=== PATIENT | female | born 1990 | race Two or more races ===

== ENCOUNTER 2018-04-05 17:02 | Emergency (ER) | payer MEDICAID ==
[~2018-04-05] VITALS: Ht 167.6 cm; Wt 80.0 kg
[~2018-04-05 17:02] MED LIST: ALB0.5UD IH; ALBU6.7H INH; NO HOME MEDS; PRED50TA PO
[2018-04-05] MEDS ORDERED: HYDROcodone/acetaminophen 10/325mg tab PO ONE (17:40)
[2018-04-05] MEDS ORDERED: cephalexin 500mg capsule PO ONE (17:40)
[2018-04-05] MEDS ORDERED: HYDR-569 PO (17:40)
[2018-04-05] MEDS ORDERED: CEPH500C5 PO (17:40)
[2018-04-05] MEDS ORDERED: NAPR-56 PO (17:40)
[2018-04-05] MEDS ORDERED: naproxen 500mg tablet PO ONE (17:40)
[2018-04-05 18:31] VITALS: BP 130/72
== END 2018-04-05 18:32 | disposition home or self-care (01) ==
LOC: ER 17:02
DX: H60.02 Abscess of left external ear (principal); J45.909 Unspecified asthma, uncomplicated; Z88.2 Allergy status to sulfonamides; Z79.899 Other long term (current) drug therapy
CPT/HCPCS: 10061; 99284

== ENCOUNTER 2018-06-06 22:48 | Inpatient (IN) | payer MEDICAID ==
[~2018-06-06] VITALS: Ht 167.6 cm; Wt 89.5 kg
[~2018-06-06 22:48] MED LIST changes: +AMOX500C2 PO; +CEPH500C5 PO; +HYDR-569 PO
[2018-06-07] MEDS ORDERED: clindamycin-Cleocin 900mg/D5W 50 ML IV ONE (03:15)
[2018-06-07] MEDS ORDERED: ondansetron/PF 4mg/2ml inj IV ONE ×2 (03:15→05:40)
[2018-06-07] MEDS ORDERED: morphine 4 MG/ML inj SYRINge IV ONE ×2 (03:15→05:40)
[2018-06-07 04:21] LABS: ALBUMIN 3.8 G/DL (3.4-5.0); ANION GAP 8 (8-16); BASOPHILS # (AUTO) 0.1 X10'3 (0-0.2); BASOPHILS % (AUTO) 0.7 % (0-1); BLOOD UREA NITROGEN 8 MG/DL (7-18); BUN/CREATININE RATIO 10.1 (6.6-38.0); CALCIUM 8.7 MG/DL (8.5-10.1); CHLORIDE 104 MMOL/L (99-107); CREATININE 0.79 MG/DL (0.40-0.90); EOSINOPHILS % (AUTO) 6.4 % (0-6); GLUCOSE 93 MG/DL (70-104); HEMATOCRIT 34.1 % (35.0-45.0); LYMPHOCYTES % (AUTO) 20.3 % (21-51); MEAN CORPUSCULAR HEMOGLOBIN 24.1 PG (27.0-31.0); MEAN CORPUSCULAR HGB CONC 32.3 % (33.0-36.5); MEAN CORPUSCULAR VOLUME 74.4 FL (78-98); MEAN PLATELET VOLUME 10.4 FL (7.4-10.4); MONOCYTES # (AUTO) 1.3 X10'3 (0-0.9); MONOCYTES % (AUTO) 8.7 % (2-12); NEUTROPHILS # (AUTO) 9.5 X10'3 (1.8-7.7); NEUTROPHILS % (AUTO) 63.9 % (42-75); PLATELET COUNT 317 X10'3 (140-440); POTASSIUM 3.5 MMOL/L (3.5-5.1); RED BLOOD COUNT 4.59 X10'6 (4.20-5.60); SODIUM 139 MMOL/L (135-145); TOTAL CARBON DIOXIDE 26.6 MMOL/L (24-32); WHITE BLOOD COUNT 14.9 X10'3 (4.5-11.0); eGFR 86 ML/MIN
[2018-06-07] MEDS ORDERED: bisacodyl 10mg suppository rectal RC PRN (06:15)
[2018-06-07] MEDS ORDERED: morphine 4 MG/ML inj SYRINge IV PRN (06:15)
[2018-06-07] MEDS ORDERED: HYDROmorphone inj. 0.5 MG/0.5 ML DISP.SYRIN IV PRN ×2 (06:15)
[2018-06-07] MEDS ORDERED: acetaminophen 325mg tablet PO PRN ×2 (06:15)
[2018-06-07] MEDS ORDERED: magnesium hydroxide 30ml (MOM) UD suspension PO PRN (06:15)
[2018-06-07] MEDS ORDERED: tetanus & diphtheria toxoid (Td) vaccine 0.5ml IMVAC ONE (06:15)
[2018-06-07] MEDS ORDERED: diphenhydrAMINE 50 mg/ml inj IV PRN (06:15)
[2018-06-07] MEDS ORDERED: diphenhydrAMINE 25mg capsule PO PRN (06:15)
[2018-06-07] MEDS ORDERED: mag hydrox/Alum hydrox/simeth 30ml oral suspension PO PRN (06:15)
[2018-06-07] MEDS ORDERED: metoclopramide 5 mg/ml inj IV PRN (06:15)
[2018-06-07] MEDS ORDERED: BIRTH CONTROL PILLS PO (06:34)
[2018-06-07] MEDS: normal saline 1000ml 1,000 ML IV SCH ×3 (06:47→19:13)
[2018-06-07] MEDS ORDERED: TETanus/Pertussis (Acell)/Diphther VAC/PF (Tdap-Adult) 0.5ml syringe IMVAC ONE (07:00)
[2018-06-07] MEDS: pantoprazole 40mg Tablet.DR PO SCH (07:42)
[2018-06-07 08:28] VITALS: BP 106/66
[2018-06-07] MEDS: docusate sod 100mg capsule PO SCH ×2 (09:02→20:18)
[2018-06-07] MEDS: morphine 4 MG/ML inj SYRINge IV PRN ×4 (09:02→23:39)
[2018-06-07] MEDS: heparin, porcine 5000 units/ml vial SQ SCH ×2 (09:02→20:19)
[2018-06-07] MEDS: clindamycin 600mg/D5W 50ml 50 ML IV SCH ×3 (09:02→20:22)
[2018-06-07 10:38] VITALS: BP 107/67
[2018-06-07 18:00] VITALS: BP 121/86
[2018-06-07] MEDS: HYDROcodone/acetaminophen 5mg/325mg tablet PO PRN (20:27)
[2018-06-07] MEDS ORDERED: temazepam 15mg capsule PO PRN (21:00)
[2018-06-08] MEDS: clindamycin 600mg/D5W 50ml 50 ML IV SCH ×2 (02:37→08:46)
[2018-06-08] MEDS: HYDROcodone/acetaminophen 10/325mg tab PO PRN ×3 (02:41→20:52)
[2018-06-08 05:00] VITALS: BP 113/77
[2018-06-08] MEDS: morphine 4 MG/ML inj SYRINge IV PRN (05:09)
[2018-06-08] MEDS: normal saline 1000ml 1,000 ML IV SCH ×2 (05:13→16:24)
[2018-06-08 06:03] LABS: BASOPHILS # (AUTO) 0.1 X10'3 (0-0.2); BASOPHILS % (AUTO) 0.6 % (0-1); EOSINOPHILS # (AUTO) 0.8 X10'3 (0-0.9); EOSINOPHILS % (AUTO) 9.3 % (0-6); HEMATOCRIT 30.2 % (35.0-45.0); HEMOGLOBIN 9.7 g/dl (12.0-16.0); LYMPHOCYTES # (AUTO) 3.3 X10'3 (1.1-4.8); LYMPHOCYTES % (AUTO) 36.5 % (21-51); MEAN CORPUSCULAR HEMOGLOBIN 23.9 PG (27.0-31.0); MEAN CORPUSCULAR HGB CONC 32.2 % (33.0-36.5); MEAN CORPUSCULAR VOLUME 74.4 FL (78-98); MEAN PLATELET VOLUME 9.6 FL (7.4-10.4); MONOCYTES % (AUTO) 10.6 % (2-12); NEUTROPHILS # (AUTO) 3.9 X10'3 (1.8-7.7); PLATELET COUNT 270 X10'3 (140-440); RED BLOOD COUNT 4.05 X10'6 (4.20-5.60); WHITE BLOOD COUNT 9.1 X10'3 (4.5-11.0)
[2018-06-08 06:30] LABS: ALANINE AMINOTRANSFERASE 20 U/L (12-78); ALBUMIN 3.1 G/DL (3.4-5.0); ALBUMIN/GLOBULIN RATIO 0.9 (1.1-1.5); ALKALINE PHOSPHATASE 51 IU/L (46-116); ANION GAP 8 (8-16); ASPARTATE AMINO TRANSFERASE 9 U/L (10-37); BILIRUBIN,TOTAL 0.4 MG/DL (0.1-1.0); BLOOD UREA NITROGEN 8 MG/DL (7-18); BUN/CREATININE RATIO 9.2 (6.6-38.0); CALCIUM 7.7 MG/DL (8.5-10.1); CHLORIDE 107 MMOL/L (99-107); CREATININE 0.87 MG/DL (0.40-0.90); GLUCOSE 96 MG/DL (70-104); POTASSIUM 3.8 MMOL/L (3.5-5.1); SODIUM 141 MMOL/L (135-145); TOTAL CARBON DIOXIDE 26.5 MMOL/L (24-32); TOTAL PROTEIN 6.5 G/DL (6.4-8.2); eGFR 77 ML/MIN
[2018-06-08 07:05] LABS: ANISOCYTOSIS 2+; PLATELET ESTIMATE NORMAL
[2018-06-08 07:12] LABS: HYPOCHROMASIA 1+; MICROCYTOSIS 1+
[2018-06-08] MEDS: heparin, porcine 5000 units/ml vial SQ SCH ×2 (08:47→20:20)
[2018-06-08] MEDS: pantoprazole 40mg Tablet.DR PO SCH (08:47)
[2018-06-08] MEDS: docusate sod 100mg capsule PO SCH ×2 (08:47→20:20)
[2018-06-08 10:00] VITALS: BP 116/77
[2018-06-08] MEDS ORDERED: CefTRIAXone 2gm/D5W 50ml 50 ML IV ONE (13:30)
[2018-06-08] MEDS ORDERED: vancomycin inj 1,250 MG in normal saline 250ml IV soln 250 ML IV SCH (14:00)
[2018-06-08] MEDS ORDERED: [UNRECOGNIZED DRUG - REMARK] (15:51)
[2018-06-08] MEDS: HYDROcodone/acetaminophen 5mg/325mg tablet PO PRN (16:46)
[2018-06-08] MEDS ORDERED: diphenhydrAMINE 50 mg/ml inj IV PRN (18:00)
[2018-06-08] MEDS ORDERED: diphenhydrAMINE 50 mg/ml inj ONE (18:01)
[2018-06-08 19:30] VITALS: BP 112/73
[2018-06-08] MEDS: linezolid 600mg/300ml PREMIX 300 ML IV SCH (20:19)
[2018-06-08 22:24] VITALS: BP 127/88
[2018-06-09] MEDS: morphine 4 MG/ML inj SYRINge IV PRN ×4 (04:11→17:21)
[2018-06-09] MEDS: normal saline 1000ml 1,000 ML IV SCH ×2 (04:12→18:14)
[2018-06-09] MEDS: ondansetron/PF 4mg/2ml inj IV PRN (04:23)
[2018-06-09 06:00] VITALS: BP 128/76
[2018-06-09 06:20] LABS: BASOPHILS # (AUTO) 0.2 X10'3 (0-0.2); BASOPHILS % (AUTO) 1.7 % (0-1); EOSINOPHILS # (AUTO) 0.9 X10'3 (0-0.9); EOSINOPHILS % (AUTO) 8.5 % (0-6); HEMATOCRIT 30.9 % (35.0-45.0); LYMPHOCYTES # (AUTO) 2.4 X10'3 (1.1-4.8); LYMPHOCYTES % (AUTO) 23.7 % (21-51); MEAN CORPUSCULAR HEMOGLOBIN 24.2 PG (27.0-31.0); MEAN CORPUSCULAR HGB CONC 32.4 % (33.0-36.5); MEAN CORPUSCULAR VOLUME 74.6 FL (78-98); MEAN PLATELET VOLUME 10.5 FL (7.4-10.4); MONOCYTES # (AUTO) 0.9 X10'3 (0-0.9); MONOCYTES % (AUTO) 9.2 % (2-12); NEUTROPHILS # (AUTO) 5.7 X10'3 (1.8-7.7); NEUTROPHILS % (AUTO) 56.9 % (42-75); PLATELET COUNT 259 X10'3 (140-440); RED BLOOD COUNT 4.15 X10'6 (4.20-5.60); RED CELL DISTRIBUTION WIDTH 19.9 % (11.5-14.5); WHITE BLOOD COUNT 10.1 X10'3 (4.5-11.0)
[2018-06-09 06:36] LABS: ALANINE AMINOTRANSFERASE 22 U/L (12-78); ALBUMIN 3.2 G/DL (3.4-5.0); ALBUMIN/GLOBULIN RATIO 0.9 (1.1-1.5); ALKALINE PHOSPHATASE 53 IU/L (46-116); ANION GAP 7 (8-16); ASPARTATE AMINO TRANSFERASE 15 U/L (10-37); BILIRUBIN,TOTAL 0.3 MG/DL (0.1-1.0); BLOOD UREA NITROGEN 5 MG/DL (7-18); BUN/CREATININE RATIO 5.7 (6.6-38.0); CALCIUM 8.6 MG/DL (8.5-10.1); CHLORIDE 107 MMOL/L (99-107); CREATININE 0.88 MG/DL (0.40-0.90); GLUCOSE 95 MG/DL (70-104); POTASSIUM 3.9 MMOL/L (3.5-5.1); SODIUM 139 MMOL/L (135-145); TOTAL CARBON DIOXIDE 25.4 MMOL/L (24-32); TOTAL PROTEIN 6.9 G/DL (6.4-8.2); eGFR 76 ML/MIN
[2018-06-09] MEDS: docusate sod 100mg capsule PO SCH ×2 (07:23→19:25)
[2018-06-09] MEDS: HYDROcodone/acetaminophen 10/325mg tab PO PRN ×5 (07:23→23:43)
[2018-06-09] MEDS: lactobacillus rhamnosus 10,000 MMU CELLS/CAPSULE PO SCH (07:24)
[2018-06-09] MEDS: heparin, porcine 5000 units/ml vial SQ SCH ×2 (07:26→19:26)
[2018-06-09] MEDS: pantoprazole 40mg Tablet.DR PO SCH (07:29)
[2018-06-09] MEDS: CefTRIAXone 2gm/D5W 50ml 50 ML IV SCH (07:32)
[2018-06-09 07:40] LABS: ANISOCYTOSIS 2+; PLATELET ESTIMATE NORMAL
[2018-06-09] MEDS: linezolid 600mg/300ml PREMIX 300 ML IV SCH (08:17)
[2018-06-09 10:00] VITALS: BP 149/99
[2018-06-09] MEDS: lactulose 20gm/30ml cup PO PRN ×3 (10:01→23:42)
[2018-06-09 10:29] LABS: CLARITY,URINE Clear (Clear); GLUCOSE, URINE Negative (Neg); KETONES,URINE Negative (Neg); LEUKOCYTE ESTERASE ,URINE Negative (Neg); NITRITES, URINE Negative (Neg); OCCULT BLOOD,URINE Negative (Neg); PROTEIN,URINE Negative (Neg); UROBILINOGEN,URINE 0.2 E.U/dL (0.2-1.0)
[2018-06-09 10:39] LABS: COLOR,URINE Straw (Yellow); UA COLLECTION TYPE CLN CATCH MIDSTREAM
[2018-06-09 10:52] LABS: URINE HCG NEGATIVE (NEG)
[2018-06-09 12:16] LABS: HCG SERUM QL NEGATIVE
[2018-06-09] MEDS ORDERED: VANCOMYCIN LEVEL IV ONE (13:30)
[2018-06-09] MEDS ORDERED: lactulose 20gm/30ml cup PO SCH (14:00)
[2018-06-09 18:00] VITALS: BP 126/85
[2018-06-09] MEDS: linezolid 600mg tablet PO SCH (19:25)
[2018-06-09 22:00] VITALS: BP 146/89
[2018-06-10 05:00] VITALS: BP 121/82
[2018-06-10] MEDS: HYDROcodone/acetaminophen 10/325mg tab PO PRN (05:16)
[2018-06-10 05:28] LABS: BASOPHILS # (AUTO) 0.1 X10'3 (0-0.2); BASOPHILS % (AUTO) 0.6 % (0-1); EOSINOPHILS # (AUTO) 0.7 X10'3 (0-0.9); EOSINOPHILS % (AUTO) 6.5 % (0-6); HEMATOCRIT 31.8 % (35.0-45.0); HEMOGLOBIN 10.3 g/dl (12.0-16.0); LYMPHOCYTES # (AUTO) 1.6 X10'3 (1.1-4.8); LYMPHOCYTES % (AUTO) 15.4 % (21-51); MEAN CORPUSCULAR HEMOGLOBIN 24.3 PG (27.0-31.0); MEAN CORPUSCULAR HGB CONC 32.4 % (33.0-36.5); MEAN CORPUSCULAR VOLUME 75.1 FL (78-98); MEAN PLATELET VOLUME 9.7 FL (7.4-10.4); MONOCYTES # (AUTO) 0.9 X10'3 (0-0.9); MONOCYTES % (AUTO) 8.5 % (2-12); NEUTROPHILS # (AUTO) 7.2 X10'3 (1.8-7.7); PLATELET COUNT 277 X10'3 (140-440); RED BLOOD COUNT 4.24 X10'6 (4.20-5.60); WHITE BLOOD COUNT 10.4 X10'3 (4.5-11.0)
[2018-06-10 06:05] LABS: ALANINE AMINOTRANSFERASE 25 U/L (12-78); ALBUMIN 3.1 G/DL (3.4-5.0); ALBUMIN/GLOBULIN RATIO 0.9 (1.1-1.5); ALKALINE PHOSPHATASE 50 IU/L (46-116); ANION GAP 4 (8-16); ASPARTATE AMINO TRANSFERASE 17 U/L (10-37); BILIRUBIN,TOTAL 0.3 MG/DL (0.1-1.0); BLOOD UREA NITROGEN 6 MG/DL (7-18); BUN/CREATININE RATIO 6.3 (6.6-38.0); CALCIUM 8.3 MG/DL (8.5-10.1); CHLORIDE 107 MMOL/L (99-107); CREATININE 0.95 MG/DL (0.40-0.90); GLUCOSE 90 MG/DL (70-104); SODIUM 139 MMOL/L (135-145); TOTAL CARBON DIOXIDE 27.6 MMOL/L (24-32); TOTAL PROTEIN 6.7 G/DL (6.4-8.2); eGFR 70 ML/MIN
[2018-06-10 06:51] LABS: ANISOCYTOSIS 2+; PLATELET ESTIMATE NORMAL
[2018-06-10] MEDS: CefTRIAXone 2gm/D5W 50ml 50 ML IV SCH (07:29)
[2018-06-10] MEDS: docusate sod 100mg capsule PO SCH (07:29)
[2018-06-10] MEDS: pantoprazole 40mg Tablet.DR PO SCH (07:29)
[2018-06-10] MEDS: lactobacillus rhamnosus 10,000 MMU CELLS/CAPSULE PO SCH (07:29)
[2018-06-10] MEDS: linezolid 600mg tablet PO SCH (07:29)
[2018-06-10] MEDS: normal saline 1000ml 1,000 ML IV SCH (07:35)
[2018-06-10] MEDS: heparin, porcine 5000 units/ml vial SQ SCH (07:48)
[2018-06-10] MEDS: ondansetron/PF 4mg/2ml inj IV PRN (08:50)
[2018-06-10] MEDS ORDERED: HYDR-569 PO (09:55)
[2018-06-10] MEDS ORDERED: CLIN150C8 PO (09:55)
== END 2018-06-10 11:35 | disposition home or self-care (01) | DRG 383 ==
LOC: ER 22:49 → ED HOLD 06-07 06:14 → ORTHO 4S 06-07 08:18
PROVIDERS: ADMIT Family Medicine; ATTEND Internal Medicine
DX: L03.115 Cellulitis of right lower limb (principal); F41.9 Anxiety disorder, unspecified; J45.909 Unspecified asthma, uncomplicated; Z88.0 Allergy status to penicillin; Z88.1 Allergy status to other antibiotic agents; Z88.2 Allergy status to sulfonamides; Z98.891 History of uterine scar from previous surgery; Z87.442 Personal history of urinary calculi
CPT/HCPCS: 36415; 73564; 73590; 74176; 80048; 80053; 81003; 81025; 83605; 84703; 85025; 87040; 87070; 90715; 93005; 93971; 96365; 96375; 96376; 97116; 97161; 97530; 99285; J0696; J1200; J1644; J2020; J2270; J2405; J3370; J3490; J7030

== ENCOUNTER 2018-09-13 10:08 | Emergency (ER) | payer MEDICAID ==
[~2018-09-13] VITALS: Ht 167.6 cm; Wt 86.4 kg
[~2018-09-13 10:08] MED LIST changes: -ALB0.5UD IH; -AMOX500C2 PO; -CEPH500C5 PO; +CLIN150C8 PO; +HYDR-4383 PO; -HYDR-569 PO; -NO HOME MEDS; -PRED50TA PO
[2018-09-13 10:22] VITALS: BP 137/92
[2018-09-13] MEDS ORDERED: TRIA15CR61 TP (10:42)
== END 2018-09-13 10:51 | disposition home or self-care (01) ==
LOC: ER 10:08
DX: H92.03 Otalgia, bilateral (principal); R21 Rash and other nonspecific skin eruption; L29.9 Pruritus, unspecified; J45.909 Unspecified asthma, uncomplicated; Z88.1 Allergy status to other antibiotic agents; Z88.2 Allergy status to sulfonamides; Z88.0 Allergy status to penicillin; Z98.890 Other specified postprocedural states
CPT/HCPCS: 99283